=== PATIENT | female | born 1985 | race Caucasian/White ===

== ENCOUNTER → 2018-11-09 | Outpatient (CLI) | payer OTHER ==
--- NOTE | 2018-11-09 15:50 | US ---
EXAMINATION TYPE: US pelvis complete transvag DATE OF EXAM: 11/09/2018 COMPARISON: NONE CLINICAL HISTORY: R10.2 Pelvic and perineal pain, N76.0 Acute. TECHNIQUE: . Transabdominal sonographic images of the pelvis were acquired. Transvaginal sonographi c images were medically necessary to better assess the following anatomy: Uterus and ovaries Date of LMP: 11/06/2018 EXAM MEASUREMENTS: Uterus: 7.2 x 3.1 x 3.4 cm Endometrial Stripe: 0.6 cm Right Ovary: 2.5 x 2.3 x 1.9 cm Left Ovary: 2.5 x 2.3 x 1.9 cm 1. Uterus: Anteverted wnl 2. Endometrium: wnl 3. Right Ovary: wnl 4. Left Ovary: wnl. Follicles are present 5. Bilateral Adnexa: wnl 6. Posterior cul-de-sac: wnl IMPRESSION: 1. No acute ultrasound abnormality.
== END | disposition home or self-care (01) ==
LOC: RADUSWWP 13:58
PROVIDERS: ATTEND Family Medicine
DX: R10.2 Pelvic and perineal pain (principal)
CPT/HCPCS: 76830; 76856

== ENCOUNTER → 2020-06-17 | Outpatient (CLI) | payer OTHER ==
--- NOTE | 2020-06-17 11:36 | MM ---
Reason for exam: screening (asymptomatic). Baseline mammogram. History: Patient history of other cancer. Family history of breast cancer in sister at age 37. Took hormonal contraceptives for 3 years beginning at age 18. Physical Findings: Nurse did not find any significant physical abnormalities on exam. MG 3D Screening Mammo W/Cad Bilateral CC and MLO view(s) were taken. There are scattered fibroglandular densities. There is no discrete abnormality. These results were verbally communicated with the patient and result sheet given to the patient on 06/17/20. ASSESSMENT: Benign, BI-RAD 2 RECOMMENDATION: Routine screening mammogram of both breasts at age 38.
--- NOTE | 2020-06-17 11:59 | US ---
EXAMINATION TYPE: US pelvis complete transvag DATE OF EXAM: 06/17/2020 COMPARISON: NONE CLINICAL HISTORY: N72 inflammatory disease of cervix, Z80.3 Family Hx. TECHNIQUE: Transvaginal (TV) and Transabdominal (TA) . Transabdominal sonographic images of the pel vis were acquired. Transvaginal sonographic images were medically necessary to better assess the fol lowing anatomy: endometrium Date of LMP: 06/16/20 EXAM MEASUREMENTS: Uterus: 8.3 x 3.7 x 4.6 cm Endometrial Stripe: 0.8cm Right Ovary: 2.5 x 1.5 x 1.9cm Left Ovary: 2.7 x 2.0 x 2.1 cm 1. Uterus: Anteverted, prominent vascularity 2. Endometrium: wnl 3. Right Ovary: wnl 4. Left Ovary: wnl 5. Bilateral Adnexa: wnl 6. Posterior cul-de-sac: wnl Urinary bladder is sonolucent. Posterior wall is normal. IMPRESSION: 1. Normal pelvic ultrasound
== END | disposition home or self-care (01) ==
LOC: RADUSWWP 10:12
PROVIDERS: ATTEND Family Medicine
DX: N72 Inflammatory disease of cervix uteri (principal); Z80.3 Family history of malignant neoplasm of breast; Z80.49 Family history of malignant neoplasm of other genital organs
CPT/HCPCS: 76830; 76856; 77063; 77067

== ENCOUNTER → 2023-04-14 | Outpatient (CLI) | payer OTHER ==
--- NOTE | 2023-04-15 10:53 | MM ---
Reason for Exam: Screening (asymptomatic). Last mammogram was performed 2 year(s) and 10 month(s) ago. Patient History: Menarche at age 11. Other cancer. Hormonal Contraceptives for 3 years from age 18 until age 21. Sister had breast cancer, age 37. Risk Values: Prachi 5 year model risk: 1.0%. NCI Lifetime model risk: 17.9%. Prior Study Comparison: 06/17/2020 Bilateral Screening Mammogram, [facility]. Tissue Density: There are scattered fibroglandular densities. Findings: Analyzed By CAD. There is no suspicious group of microcalcifications or new suspicious mass in either breast. Benign calcifications. Overall Assessment: Benign, BI-RAD 2 Management: Screening Mammogram of both breasts in 1 year. . Patient should continue monthly self-breast exams. A clinical breast exam by your physician is recommended on an annual basis. This exam should not preclude additional follow-up of suspicious palpable abnormalities. Note on Prachi scores and lifetime risk: 1. A Prachi score greater than 3% is considered moderate risk. If this is the case, consider specialist referral to assess eligibility for a risk reducing agent. 2. If overall lifetime risk for the development of breast cancer is 20% or higher, the patient may qualify for future screening with alternating mammogram and breast MRI. Electronically signed and approved by: Javier Brian M.D. Radiologis
== END | disposition home or self-care (01) ==
LOC: RADMAMWWP 15:46
PROVIDERS: ATTEND Obstetrics & Gynecology
DX: Z12.31 Encounter for screening mammogram for malignant neoplasm of breast (principal); Z80.3 Family history of malignant neoplasm of breast
CPT/HCPCS: 77063; 77067

== ENCOUNTER → 2024-04-18 | Outpatient (CLI) | payer OTHER ==
--- NOTE | 2024-04-23 13:59 | MM ---
Reason for Exam: Screening (asymptomatic). Last screening mammogram was performed 12 month(s) ago. Patient History: Menarche at age 11. Other cancer. Hormonal Contraceptives for 3 years from age 18 until age 21. Sister had breast cancer, age 37. Risk Values: Prachi 5 year model risk: 1.1%. NCI Lifetime model risk: 17.7%. Prior Study Comparison: 06/17/2020 Bilateral Screening Mammogram, [facility]. 04/14/2023 Bilateral MG 3D screening mammo w/cad, [facility]. Tissue Density: There are scattered areas of fibroglandular density. Findings: Analyzed By CAD. The pattern is symmetrical. Pattern is stable.. No suspicious groups of microcalcifications, spiculated or lobular masses, architectural distortion or other secondary signs of malignancy are mammographically apparent. Overall Assessment: Benign, BI-RAD 2 Management: Screening Mammogram of both breasts in 1 year. A negative mammogram report should not preclude additional follow up of suspicious palpable abnormalities. Patient should continue monthly self breast exam. A clinical breast exam by your physician is recommended on an annual basis and results should be correlated with mammographic findings. Note on Prachi scores and lifetime risk: 1. A Prachi score greater than 3% is considered moderate risk. If this is the case, consider specialist referral to assess eligibility for a risk reducing agent. 2. If overall lifetime risk for the development of breast cancer is 20% or higher, the patient may qualify for future screening with alternating mammogram and breast MRI. [facility], , 04/23/2024 1:55 PM. Electronically signed and approved by: Moshe Foster D.O. Radiologis
--- NOTE | 2024-05-02 12:02 | P.PN ---
Progress Note - Text Progress Note Date: 05/02/24 OUTPATIENT FOLLOW-UP NOTE TEST(S)/RESULTS: Test results from 04/18/2024 include negative Pap smear with negative high risk HPV (negative cotest) and benign mammogram. METHOD OF NOTIFICATION: A message with these results was left on the patient's voicemail on an [id number]. PATIENT COMMENTS: DIAGNOSIS: Negative Pap smear cotest and benign mammogram. DISCUSSION: PLAN: The patient is to return in one year for her annual well woman exam.
== END | disposition home or self-care (01) ==
LOC: RADMAMWWP 14:36
PROVIDERS: ATTEND Family Medicine
DX: Z12.31 Encounter for screening mammogram for malignant neoplasm of breast
CPT/HCPCS: 77063; 77067

== ENCOUNTER → 2024-04-18 | Outpatient (CLI) | payer OTHER ==
[2024-04-18 15:11] VITALS: BP 108/76; PULSE 82; RESP 16; TEMP 98.2
--- NOTE | 2024-04-18 17:21 | P.HPOB ---
History of Present Illness H&P Date: 04/18/24 Chief Complaint: The patient is here for her routine gynecologic exam and ma mmogram. This is a 39-year-old G0 with an LMP of 03/28/2024. Patient is here to establish with this office. It has been about 1-1/2 years since her last pelvic exam. She previously saw Dr. Celeste for her gynecologic care. She did have a colposcopic examination with biopsy showing a low-grade HALIE in 2020. She states she did not need treatment after the colposcopy and her follow-up Pap smears wer e normal. In 2019 she did have a benign endometrial biopsy. She started having menstrual periods about at age 12. Her menstrual periods were somewhat irregular, about every other month until 2017 when they became regular every month. She thinks this happened because she entered the [employer] at that time. She is currently without gynecologic complaints. Review of Systems The patient has lost 30 pounds over the last year. She has been on Wegovy since November 2023 and this is for weight loss. She denies respiratory, cardiac, or G.I. problems. Past Medical History Past Medical History: No Reported History Additional Past Medical History / Comment(s): Left iliotibial band from an injury. PAST EQUIPMENT MANAGER HISTORY: She has no history of STDs. History of Any Multi-Drug Resistant Organisms: None Reported Past Surgical History: Cholecystectomy Additional Past Surgical History / Comment(s): Left toe surgery. Past Anesthesia/Blood Transfusion Reactions: No Reported Reaction Past Psychological History: No Psychological Hx Reported Smoking Status: Never smoker Past Alcohol Use History: None Reported Past Drug Use History: None Reported Additional History: She is single and entered the [employer] to become a [employer] in 2018. She was sexually active at approximately age 17 and states she has been abstinent since then. She previously was in the [employer] until her injury of her left leg. 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 - Past Family History Mother Family Medical History: Cancer, Thyroid Disorder Additional Family Medical History / Comment(s): Hysterectomy for what the patient believes was cervical cancer. Maternal grandfather had some type of widespread cancer. Father Family Medical History: Hypertension, Thyroid Disorder Sister(s) Family Medical History: Cancer Additional Family Medical History / Comment(s): Half-Sister had breast cancer. Medications and Allergies Home Medications Medication Instructions Recorded Confirmed Type Meloxicam [Mobic] 15 mg PO DAILY 04/18/24 04/18/24 History Semaglutide [Wegovy] 2.4 mg INJ WEEKLY 04/18/24 04/18/24 History Allergies Allergy/AdvReac Type Severity Reaction Status Date / Time cephalexin [From Keflex] Allergy Nausea & Unverified 04/18/24 15:06 Vomiting doxycycline Allergy Rash/Hives Unverified 04/18/24 15:06 nickel Allergy Rash/Hives Unverified 04/18/24 15:06 Penicillins Allergy Itching Unverified 04/18/24 15:06 Sulfa (Sulfonamide Allergy Rash/Hives Unverified 04/18/24 15:06 Antibiotics) Exam Vital Signs Temp Pulse Resp BP Pulse Ox 04/18/24 15:08 98.2 F 82 16 108/76 98 Intake and Output 04/18/24 04/18/24 04/18/24 06:59 14:59 22:59 Other: Weight 87.997 kg Height 5 feet 2 inches, weight 194 pounds, BMI 35.5. This is a well-developed well-nourished white female who is alert and oriented times 3 in no acute distress. HEENT: Within normal limits. NECK: Supple without mass or thyromegaly. CHEST AND LUNGS: Clear to auscultation. HEART: Regular rate and rhythm. BREASTS: Are without mass or discharge. AXILLARY EXAM: Negative for adenopathy. BACK: Negative for CVA tenderness. ABDOMEN: Soft, nontender, without palpable masses. PELVIC EXAM: Normal external genitalia. Cervix and vagina appear normal. The cervix is somewhat friable upon doing the Pap smear. There is no cervical motion tenderness. There is no unusual discharge. There is no evidence of prolapse. The uterus is midposition, nongravid size and nontender. There are no palpable adnexal masses or tenderness. RECTAL EXAM: negative for mass or tenderness and is negative for occult blood. EXTREMITIES: Nontender. IMPRESSION: 1. 39-year-old female with somewhat friable cervix upon doing the Pap smear, with otherwise normal gynecologic exam. 2. She has been abstinent for many years. PLAN: 1. Pap smear cotest was performed. 2. Self breast awareness was discussed with the patient. We have also discussed symptoms associated with inflammatory breast cancer. 3. Screening mammogram was done today. 4. Osteoporosis prevention was discussed. I have stressed the importance of adequate calcium, vitamin D and regular exercise. Recommended amounts of calcium and vitamin D were also discussed. 5. We will talk to her mother to confirm the type of cancer that she had. 6. She was advised to return in one year for her annual well woman exam.
== END ==
LOC: WWCWWP 14:32
PROVIDERS: ATTEND Obstetrics & Gynecology
DX: Z01.419 Encounter for gynecological examination (general) (routine) without abnormal findings (principal); Z80.3 Family history of malignant neoplasm of breast; Z88.2 Allergy status to sulfonamides; Z88.0 Allergy status to penicillin; Z91.09 Other allergy status, other than to drugs and biological substances; Z88.1 Allergy status to other antibiotic agents